=== PATIENT | male | born 1940 | race Caucasian/White ===

== ENCOUNTER 2016-10-05 23:16 | Observation (INO) | payer OTHER ==
[~2016-10-05] VITALS: Ht 152.4 cm; Wt 81.1 kg
[~2016-10-05 23:16] MED LIST: ASPIRIN81 M2 PO; CENTRUM SILVER1 EAC3 PO; CHILD ASPIRIN81 M1 PO; CRESTOR20 MG; Colace PO; DILANTIN100 MG PO; Decadron PO; Dilantin PO; Dulcolax PO; Ecotrin PO; Flexeril PO; Flomax PO; LISINOPRIL10 MG PO; METOPROLOL SUCC50 MG PO; MOBIC7.5 MG PO; Maalox, Mylanta PO; Miralax, Glycolax PO; OMEGA 3-6-91200 MG PO; Oscal 500 w/Vitamin PO; PHENOBARBITAL60 MG PO; PHENOBARBITAL64.8 MG PO; PHENobarbital PO; PRAVASTATIN SOD80 MG PO; Protonix PO; TAMSULOSIN HCL0.4 MG PO; TYLENOL EXTRA500 MG PO; TYLENOL REGULA325 MG PO; Zestril,Prinivil PO
[2016-10-05 23:48] LABS: HEMATOCRIT 48.2 % (38.0-50.0); MCH 30.8 PG (29.0-34.0); MCHC 34.2 G/DL (30.0-36.0); MCV 90.1 FL (86-99); MEAN PLAT.VOLUME 9.5 uM^3 (9.0-12.4); PLATELET COUNT 255 K/uL (156-360); RBC DIS.WIDTH-CV 11.9 % (11.8-14.6); RED BLOOD COUNT 5.35 M/uL (4.00-5.50); WHITE BLOOD COUNT 13.5 K/uL (4.1-10.2)
[2016-10-06] LABS: CHLORIDE 100 mEq/L (99-109); SODIUM 141 mEq/L (136-147)
[2016-10-06 00:01] LABS: GLUCOSE 125 mg/dL (70-99)
[2016-10-06 00:03] LABS: ANION GAP 15 MEQ/L (2-14)
[2016-10-06 00:05] LABS: GFR ESTIMATE (CALCULATED) > 59 mL/min/
[2016-10-06 00:06] LABS: UREA NITROGEN (BUN) 20 mg/dL (9-23)
[2016-10-06 00:07] LABS: TROP-I INTERPRETATION NEGATIVE; TROPONIN-I < 0.01 ng/mL (0.0-0.30)
[2016-10-06 00:47] LABS: ALKALINE PHOSPHATASE 84 IU/L (3-129)
[2016-10-06 00:49] LABS: DIRECT BILIRUBIN 0.4 mg/dL (0.0-0.3)
[2016-10-06 00:50] LABS: LIPASE 23 U/L (1.0-51.0)
[2016-10-06] MEDS ORDERED: PHENOBARBITAL60 MG PO (03:00)
[2016-10-06 03:23] VITALS: BP 141/65
[2016-10-06 07:05] LABS: HDL CHOLESTEROL 47 MG/DL (Desirable>=40); LDL CHOLESTEROL 151 mg/dL (Desirable<100); NON-HDL CHOLESTEROL 173 mg/dL (Desirable<160); PHENOBARBITAL 16.7 MCG/ML (15-40); TOTAL CHOLESTEROL 220 mg/dL (Desirable<200); TRIGLYCERIDES 110 MG/DL (Normal: <150)
[2016-10-06 07:26] LABS: TROP-I INTERPRETATION NEGATIVE; TROPONIN-I < 0.01 ng/mL (0.0-0.30)
[2016-10-06 08:44] LABS: EOSINOPHIL (%) 4.4 % (0-5); EOSINOPHIL COUNT 0.4 K/uL (0-0.3); HEMATOCRIT 45.3 % (38.0-50.0); IMMATURE GRANULOCYTE (%) 0.4 % (0.0-0.7); INSTRUMENT ABS NEUTROPHIL CT 6.9 K/uL; LYMPHOCYTE COUNT 1.5 K/uL (1.0-2.8); MCHC 33.8 G/DL (30.0-36.0); MCV 91.7 FL (86-99); MONOCYTE (%) 9.5 % (3-12); MONOCYTE COUNT 0.9 K/uL (0-0.8); NEUTROPHIL (%) 70.3 % (45-76); NEUTROPHIL COUNT 6.9 K/uL (1.8-6.4); PLATELET COUNT 222 K/uL (156-360); RBC DIS.WIDTH-SD 40.6 % (39-53); RED BLOOD COUNT 4.94 M/uL (4.00-5.50); WHITE BLOOD COUNT 9.8 K/uL (4.1-10.2)
[2016-10-06 08:54] VITALS: BP 130/67
[2016-10-06] MEDS ORDERED: TOPROL XL100 MG PO (09:25)
[2016-10-06] MEDS ORDERED: FLOMAX0.4 MG PO (09:26)
[2016-10-06] MEDS ORDERED: PHENOBARBITAL64.8 MG PO (09:26)
[2016-10-06] MEDS ORDERED: PRINIVIL20 MG PO (09:27)
[2016-10-06 12:30] VITALS: BP 129/71
[2016-10-06 13:08] LABS: TROP-I INTERPRETATION NEGATIVE; TROPONIN-I < 0.01 ng/mL (0.0-0.30)
== END 2016-10-06 16:26 | disposition home or self-care (01) ==
LOC: EME 23:16 → EDOF 10-06 02:17 → 5WEST 10-06 03:15
PROVIDERS: Physician Assistant Medical
DX: R07.9 Chest pain, unspecified (principal); I25.2 Old myocardial infarction; R10.13 Epigastric pain; R11.2 Nausea with vomiting, unspecified; R56.9 Unspecified convulsions; Z79.82 Long term (current) use of aspirin; R06.02 Shortness of breath; I25.10 Atherosclerotic heart disease of native coronary artery without angina pectoris; Z95.5 Presence of coronary angioplasty implant and graft; I10 Essential (primary) hypertension; D72.829 Elevated white blood cell count, unspecified; Z82.49 Family history of ischemic heart disease and other diseases of the circulatory system; Z83.3 Family history of diabetes mellitus
CPT/HCPCS: 71020; 74176; 76705; 80048; 80061; 80076; 80184; 80185; 81003; 83690; 84484; 85025; 85027; 93005; 99281; 99285; G0378; J1644; J2405